=== PATIENT | female | born 1985 | race Caucasian/White ===

== ENCOUNTER 2018-08-29 14:19 | Emergency (ER) | payer MEDICAID ==
[~2018-08-29] VITALS: Ht 167.6 cm; Wt 121.6 kg
[2018-08-29 14:33] VITALS: Ht 167.6 cm; Wt 121.6 kg
[2018-08-29 15:47] VITALS: BP 114/52
== END 2018-08-29 15:47 | disposition home or self-care (01) ==
LOC: ED 14:19
DX: F41.9 Anxiety disorder, unspecified (principal); J45.909 Unspecified asthma, uncomplicated; F31.9 Bipolar disorder, unspecified; Z76.0 Encounter for issue of repeat prescription

== ENCOUNTER 2018-10-13 12:16 | Emergency (ER) | payer MEDICAID ==
[~2018-10-13] VITALS: Ht 167.6 cm; Wt 121.6 kg
[2018-10-13 12:27] VITALS: BP 125/61; Ht 167.6 cm; Wt 121.6 kg
== END 2018-10-13 13:03 | disposition home or self-care (01) ==
LOC: ED 12:16
DX: F31.9 Bipolar disorder, unspecified (principal); J45.909 Unspecified asthma, uncomplicated; Z76.0 Encounter for issue of repeat prescription